=== PATIENT | female | born 1955 | race Caucasian/White ===

== ENCOUNTER 2016-12-26 14:12 | Inpatient (IN) | payer BC ==
[~2016-12-26] VITALS: Ht 160 cm; Wt 57.9 kg
[2017-01-05 04:48] VITALS: O2SAT 98
[2017-01-05] MEDS ORDERED: UMEC1AER INH (11:53)
[2017-01-05] MEDS ORDERED: PRAV40TA2 PO (11:54)
[2017-01-05] MEDS ORDERED: LEVO50TA4 PO (11:55)
[2017-01-05] MEDS ORDERED: VENTAER INH (11:56)
[2017-01-05] MEDS ORDERED: DEXT 5%-NACL 0.9% 1000 ML INJ 1,000 ML IV SCH (12:00)
[2017-01-05] MEDS ORDERED: METRONIDAZOLE 500 MG/100 ML ISONTONIC SOLN IV SCH (12:00)
[2017-01-05] MEDS ORDERED: ceFAZolin 2 GM PREMIX 50 ML IV SCH (12:00)
[2017-01-05] MEDS ORDERED: SODIUM CHLORID 0.9% 500 ML IV SCH (12:00)
[2017-01-05] MEDS ORDERED: INSULIN HUMAN REGULAR 1,000 UNITS/10 ML VIAL SQ PRN (12:00)
[2017-01-05] MEDS ORDERED: METOPROLOL TARTRATE 25 MG TAB PO PRN (12:00)
[2017-01-05] MEDS ORDERED: LACTATED RINGER'S 1000 ML IV SCH (12:00)
[2017-01-05 12:09] VITALS: BP 139/82; PULSE 96; RESP 18; TEMP 97.9; O2SAT 98
[2017-01-05] MEDS ORDERED: PROPOFOL 200 MG/20 ML AMP IV ONE (12:46)
[2017-01-05] MEDS ORDERED: ONDANSETRON HCL 4 MG/2 ML VIAL IV PUSH ONE (12:46)
[2017-01-05] MEDS ORDERED: LACTATED RINGER'S 1000 ML INJ 1,000 ML IV ONE (12:46)
[2017-01-05] MEDS ORDERED: NORMOSOL R INJ 2,000 ML IV ONE (12:46)
[2017-01-05] MEDS ORDERED: ePHEDrine/NS 50 MG/5 ML SYR IV ONE (12:46)
--- NOTE | 2017-01-05 14:19 | PD.HP.UP ---
H&P Update Note The Pre-Admit History and Physical Examination regarding the above named patient was reviewed (including, but not limited to, vital signs, heart, lungs, co-morbid conditions), and upon re-examination it is noted that: the patient's condition has not significantly changed since the last examination. Sada Olmedo MD Jan 05, 2017 14:19
[2017-01-05] MEDS ORDERED: APREPITANT 40 MG CAP ONE (14:58)
[2017-01-05] MEDS ORDERED: FAMOTIDINE 20 MG/2 ML VIAL ONE (14:58)
[2017-01-05] MEDS ORDERED: ACETAMINOPHEN 1000 MG/100 ML VIAL IV ONE (15:02)
[2017-01-05] MEDS ORDERED: fentaNYL CITRATE 250 MCG/5 ML AMP ONE (15:02)
[2017-01-05] MEDS ORDERED: HYDROmorphone HCL PF 2 MG/ML VIAL ONE (15:02)
[2017-01-05] MEDS ORDERED: MIDAZOLAM HCL 2 MG/2 ML VIAL ONE (15:48)
--- NOTE | 2017-01-05 16:44 | PD.OP ---
Operative Report Date of Surgery: Jan 05, 2017 Preoperative Diagnosis: Colovesical fistula Postoperative Diagnosis: Same Procedure: Cystoscopy and bilateral ureteral catheter insertion Anesthesia: Gen. endotracheal tube anesthesia Surgeon: Nacho Sharp Tank Car Cleaner(s): None Operation and Findings: 61-year-old female with history of colovaginal fistula elected to undergo repair by Dr. Olmedo. Request for made for bilateral ureteral catheter insertion. Risk and benefits were discussed preoperatively and she was willing to proceed. Patient was brought to operating room identified by myself as Marija Yang. She was placed in the dorsal lithotomy position, prepped and draped in usual sterile fashion, received preprocedure antibiotics and general endotracheal tube anesthesia. 22 [place] cystoscope was inserted in the bladder frederick cystoscopy did not reveal any abnormalities. The left ureteral orifice was identified and a 5 [place]ian open catheter was inserted into the left ureteral orifice without difficulty. This was repeated on the right side without difficulty. Bartlett was inserted and the catheters were attached to a Bartlett and he tolerated the procedure well. Nacho Sharp DO Jan 05, 2017 16:44
[2017-01-05] MEDS ORDERED: SUGAMMADEX SODIUM 200 MG/2 ML VIAL IV PUSH ONE ×2 (18:29)
[2017-01-05 19:19] LABS: HEMATOCRIT 34.5 % (35.0-46.0); REVIEW FLAG FINAL
[2017-01-05 19:24] LABS: BLOOD GAS BASE EXCESS -1.9 mmol/L (-2-2); BLOOD GAS CARBOXYHEMOGLOBIN 1.7 % (0-4); BLOOD GAS HCO3 22 mmol/L (22-26); BLOOD GAS METHEMOGLOBIN 1.3 % (0-2); BLOOD GAS O2 HGB SATURATION 97 % (90-100); BLOOD GAS PCO2 37 mmHg (38-42); BLOOD GAS PO2 309 mmHg (61-120); BLOOD GAS TOTAL HGB 11.2 G/DL (12.0-16.0); CRITICAL VALUE NO; DRAW SITE ART LINE; FIO2 50 %; OXYGEN DEVICE VENTILATOR; STAT YES; TEMP CORR TO 98.6; VENT SETTINGS PER ANESTHESIA
[2017-01-05] MEDS ORDERED: MORPHINE SULFATE 30 MG/30 ML PCA IV SCH (20:15)
[2017-01-05] MEDS ORDERED: ACETAMINOPHEN 325 MG TAB PO PRN (20:15)
[2017-01-05] MEDS ORDERED: ALBUTEROL SULFATE 90 MCG/ACT HFA 8 GM INHALER INH PRN (20:15)
[2017-01-05] MEDS ORDERED: NALOXONE HCL 0.4 MG/ML AMP IV PRN (20:15)
[2017-01-05] MEDS ORDERED: ONDANSETRON HCL 4 MG/2 ML VIAL IV PRN (20:15)
[2017-01-05] MEDS ORDERED: Post-op Orders (for Pharmacy) MISC XX ONE (20:15)
[2017-01-05] MEDS ORDERED: KETOROLAC TROMETHAMINE 30 MG/ML (IVP) VIAL IVP PRN (20:15)
[2017-01-05] MEDS ORDERED: diphenhydrAMINE HCL 50 MG/ML VIAL IV PRN (20:15)
[2017-01-05] MEDS ORDERED: BENZOCAINE 6 MG/MENTHOL 10 MG LOZENGE SUCK-ON PRN (20:15)
[2017-01-05] MEDS ORDERED: SODIUM CHLORIDE 0.9% FLUSH 5 ML FLUSH IVF PRN (20:15)
[2017-01-05] MEDS ORDERED: POTASSIUM CHLOR 40 MEQ PREMIX 100 ML IV PRN (20:15)
[2017-01-05] MEDS ORDERED: ENALAPRILAT 2.5 MG/2 ML VIAL IV PRN (20:15)
[2017-01-05] MEDS ORDERED: POTASSIUM CHLOR 20 MEQ PREMIX 100 ML IV PRN (20:15)
[2017-01-05] MEDS ORDERED: ENALAPRILAT 1.25 MG/ML VIAL IV PRN (20:15)
[2017-01-05] MEDS ORDERED: ACETAMINOPHEN/HYDROcodone 325 MG/5 MG TAB PO PRN ×2 (20:15)
[2017-01-05] MEDS: D5-NS + KCL 20 MEQ INJ 1,000 ML IV SCH (20:30)
[2017-01-05 20:39] LABS: AUTOMATED NEUTROPHIL # 14.5 TH/MM3 (1.8-7.7); BASOPHIL # 0.1 TH/MM3 (0-0.2); BASOPHIL % 0.5 % (0.0-2.0); EOSINOPHIL % 0.2 % (0.0-4.0); HEMATOCRIT 36.8 % (35.0-46.0); HEMO FLAGS DIFF FINAL; LYMPH % 12.1 % (9.0-44.0); LYMPHOCYTE # 2.1 TH/MM3 (1.0-4.8); MEAN CELL VOLUME 86.6 FL (80.0-100.0); MEAN CORPUSCULAR HEMOGLOBIN 29.2 PG (27.0-34.0); MEAN CORPUSCULAR HGB CONC 33.8 % (32.0-36.0); MONO % 2.8 % (0.0-8.0); NEUT % 84.4 % (16.0-70.0); PLATELET COUNT 243 TH/MM3 (150-450); RED BLOOD COUNT 4.25 MIL/MM3 (4.00-5.30); RED CELL DISTRIBUTION WIDTH 14.4 % (11.6-17.2); WHITE BLOOD COUNT 17.1 TH/MM3 (4.0-11.0)
[2017-01-05] MEDS ORDERED: DO NOT ADM ANY ANTICOAGULANT DRUGS XX PRN (20:45)
[2017-01-05 20:57] LABS: POTASSIUM 3.3 MEQ/L (3.5-5.1)
[2017-01-05 21:13] LABS: CALCIUM-PROTEIN CORRECTED 7.7 MG/DL (8.5-10.1)
[2017-01-05 22:00] VITALS: BP 119/55; PULSE 84; RESP 16; TEMP 97.6; O2SAT 96
[2017-01-05] MEDS: PCA - TOTAL MG MORPHINE DELIVERED PER SHIFT SCH (22:00)
[2017-01-05 23:00] VITALS: BP 111/59; PULSE 84; PULSE 85; RESP 16; O2SAT 98
[2017-01-06] VITALS (28 sets, daily range): BP systolic 99–122; BP diastolic 54–64; PULSE 76–94; RESP 16–18; TEMP 97.7–98.6; O2SAT 95–97
[2017-01-06] MEDS: metroNIDAZOLE 500 MG INJ 100 ML IV SCH ×3 (01:00→14:26)
[2017-01-06] MEDS: SODIUM CHLORIDE 0.9% FLUSH 5 ML FLUSH IVF SCH ×3 (01:01→21:28)
[2017-01-06] MEDS: D5-NS + KCL 20 MEQ INJ 1,000 ML IV SCH ×2 (03:54→17:00)
[2017-01-06 05:22] LABS: BASOPHIL % 0.1 % (0.0-2.0); HEMATOCRIT 35.6 % (35.0-46.0); HEMO FLAGS DIFF FINAL; LYMPH % 6.7 % (9.0-44.0); MEAN CELL VOLUME 87.4 FL (80.0-100.0); MEAN CORPUSCULAR HEMOGLOBIN 29.3 PG (27.0-34.0); MEAN CORPUSCULAR HGB CONC 33.6 % (32.0-36.0); MONO % 7.4 % (0.0-8.0); NEUT % 85.8 % (16.0-70.0); PLATELET COUNT 224 TH/MM3 (150-450); RED BLOOD COUNT 4.08 MIL/MM3 (4.00-5.30); RED CELL DISTRIBUTION WIDTH 14.8 % (11.6-17.2); WHITE BLOOD COUNT 15.2 TH/MM3 (4.0-11.0)
[2017-01-06] MEDS: PCA - TOTAL MG MORPHINE DELIVERED PER SHIFT SCH ×3 (05:38→21:24)
[2017-01-06 05:48] LABS: BICARBONATE 25.4 MEQ/L (21.0-32.0); POTASSIUM 3.9 MEQ/L (3.5-5.1)
[2017-01-06] MEDS: LEVOTHYROXINE SODIUM 50 MCG TAB PO SCH (06:15)
[2017-01-06 06:40] LABS: CALCIUM-PROTEIN CORRECTED 7.4 MG/DL (8.5-10.1)
--- NOTE | 2017-01-06 07:54 | HHI.PR ---
Subjective Remarks POD#1 s/p Robotic KIESHA/LAR/SBR Reports pain, some nausea Objective Vital Signs Date Time Temp Pulse Resp B/P Pulse Ox O2 Delivery O2 Flow Rate FiO2 01/06/17 07:34 96 21 01/06/17 06:00 89 01/06/17 05:38 16 01/06/17 05:00 87 01/06/17 04:00 90 01/06/17 03:40 91 16 113/58 96 01/06/17 03:00 89 01/06/17 02:00 89 01/06/17 01:00 86 01/06/17 00:00 89 01/05/17 23:00 85 01/05/17 23:00 84 16 111/59 98 01/05/17 22:00 97.6 84 16 119/55 96 01/05/17 22:00 84 01/05/17 22:00 16 01/05/17 22:00 16 01/05/17 21:40 97.5 83 16 100 Nasal Cannula 4 01/05/17 21:30 82 14 117/66 100 Nasal Cannula 4 01/05/17 21:15 87 14 136/70 95 Nasal Cannula 4 01/05/17 21:12 14 01/05/17 21:00 86 14 116/66 94 Nasal Cannula 4 01/05/17 20:45 93 16 139/70 99 Nasal Cannula 4 01/05/17 20:30 97 16 128/68 99 Nasal Cannula 4 01/05/17 20:22 97.7 99 18 131/71 99 Nasal Cannula 4 01/05/17 12:09 97.9 96 18 139/82 98 I/O 01/05/17 01/05/17 01/05/17 01/06/17 01/06/17 01/06/17 07:00 15:00 23:00 07:00 15:00 23:00 Intake Total 3100 ml 1250 ml Output Total 400 ml 800 ml Balance 2700 ml 450 ml Intake Oral 50 ml IV Total 1200 ml Other 3100 ml Output Urine Total 150 ml 800 ml Estimated Blood Loss 100 ml Other 150 ml # Bowel Movements 0 Result Diagram: 01/06/17 0445 01/06/17 0445 Objective Remarks Abdomen soft, nondistended, tender Dressings c/d/i urine still sanguinous Assessment and Plan Assessment and Plan Hold on fulls until nausea resolves Mobilize Stent d/c'd Sada Olmedo MD Jan 06, 2017 07:54
[2017-01-06] MEDS: PANTOPRAZOLE SODIUM 40 MG VIAL IVP SCH (08:10)
[2017-01-06] MEDS: UMECLIDINIUM 62.5 MCG/VILANTEROL 25 MCG INHALER INH SCH (10:21)
[2017-01-06] MEDS: HEPARIN SODIUM - SQ 10,000 UNITS/ML VIAL SQ SCH (18:46)
--- NOTE | 2017-01-06 20:23 | MP ---
cc: EMILY OLMEDO M.D. SOUMYA OLMEDO M.D. DATE OF SURGERY: 01/05/2017 PREOPERATIVE DIAGNOSIS: 1. Diverticulitis 2. Colovaginal fistula. POSTOPERATIVE DIAGNOSIS: 1. Diverticulitis. 2. Colovaginal fistula. 3. Adhesions. OPERATIVE PROCEDURE PERFORMED: 1. Laparoscopic / robotic extensive lysis of adhesions. 2. Robotic low anterior resection 3. Robotic small bowel resection. SURGEON: Emily Olmedo M.D. ESTIMATED BLOOD LOSS: 100 cc. INDICATIONS FOR THE PROCEDURE: The patient is a 61-year-old female who was recently noted to have a colovaginal fistula. OPERATIVE FINDINGS: The liver was normal. The proximal colon was normal, although there were some scattered diverticula but the bowel was soft and pliable. The mid and distal sigmoid was inflamed, phlegmonatous and stuck down to the left pelvic side wall. The proximal-mid small bowel was stuck down as well. . DESCRIPTION OF THE PROCEDURE IN DETAIL: The patient was brought to the operating room and placed in the supine position. After induction of general anesthesia, the patient was placed in Russell stirrups. All bony prominences were carefully padded. The skin of the anterior abdominal wall, as well as the perineal area, was then prepped and draped in the usual sterile fashion. Dr. Sharp then came in and performed cystoscopy with placement of bilateral ureteral catheters, please see his operative note for details. A site was then chosen for the camera, being located 2 cm above and to the right of the umbilicus. The 10/12 port was placed at this location using the laparoscope. CO2 insufflation was then undertaken. A brief abdominal survey was performed, and the patient was noted to have the phlegmon in the sigmoid with the small bowel adherent, but there was nothing that would preclude the robotic approach. The #1 port was then placed just inside the right anterior superior iliac spine, and this was a 10/12 port. The #5 assist port was placed just under the right costal margin, equal distance between the #1 port and the camera port. The patient was hydroplaned with head down and slightly to the right. There were some areas where the omentum was adherent down into the pelvis, and these were dissected free and the omentum was eventually brought up-and-over the transverse colon and retracted. The small bowel was then gently dissected free from the area of the phlegmon, with plans to evaluate that more fully later in the case. The other two ports were then placed as follows: Both #8 da Beryl ports. The #3 port was placed in left anterior axillary line, on a line with the umbilicus, and the #2 port was placed in the left midclavicular line, just above the umbilical line. At this point, the small bowel was brought up and out of the pelvis and to the right and we had relatively good view of the base of the mesentery. The robot was then docked. The sigmoid colon was retracted down and to the left. The peritoneum was scored and dissection continued in this plane until the left ureter was clearly identified and swept away from the specimen. A window was made superior to the vessels and the echelon Endo stapler, white load, was brought onto the field. This was placed across the vessels, closed, held for 30 seconds, fired, and removed. Dissection then continued in the posterior plane, down to level of the mid rectum and up and around the right and left side. The adhesions of the sigmoid colon were then slowly and painstakingly dissected free from the left pelvic sidewall, peeling it off of the vagina. Eventually we had all the adhesions taken down and we were able to pull the colon up and straighten it out. A sponge stick was then placed in the rectum. After evaluation of the colon there seemed to be a slight kink just at the level of the peritoneal reflection. The dissection continued down to this level and a site was then chosen for division of the rectum. The mesentery at this level was divided using the harmonic scalpel, and the echelon endostapler was placed across the bowel. The stapler was fired and removed. At this point, the 29 EEA stapler was advanced up to the rectal stump and it still just had kind of a funny kink at the end, so I did elect to dissect back an additional 3 to 4 cm. The mesentery was dissected back and a reload of the [place] stapler was placed across the bowel at this level. Eventually the small remnant was retrieved and discarded. At this point the stapler was again advanced to the rectal stump and came up nicely and lay without any abnormal orientation. The descending colon was then retracted to the right and the lateral peritoneal attachment and posterior peritoneal attachment to the descending colon were dissected free up to the level of the splenic flexure, but not around it. At this point, I felt that it came nicely down to the pelvis without too much trouble and the robot was undocked. A 7 to 10 cm transverse incision was made in the suprapubic area and, using electrocautery, dissection was carried down to the fascia of the anterior abdominal wall which was split the length of the skin incision. The medial fibers of the rectus abdominis muscle were then divided, and the posterior fascia/peritoneum was also split the length the skin incision. The wound retractor was then placed and the proximal stapled end of bowel was grasped and pulled up and out through the pelvis. A site was then chosen for proximal division of bowel, where the bowel was healthy and soft. It was not possible to find an area with no diverticula. The mesentery at this level was serially divided and ligated using 0 Vicryl ties, and a pursestring stapling device was placed across the bowel. The distal bowel was occluded with a [place] clamp and the bowel was amputated. The specimen was taken to a back table where it was later opened and severe diverticulitis was later confirmed but no other abnormality. The anvil from the 29 EEA was then placed into the cut end of the bowel and the previously placed pursestring suture was then secured. It was necessary to suture in one small diverticula to make for a better anastomosis. At this point, the small bowel was run and the area of inflammation where it was stuck down to the phlegmon was evaluated. I did feel that it was somewhat damaged and I elected to resect it. The bowel was cleared of its mesentery proximally and distally and a JOSEE 55 stapler was placed across the bowel at both locations. The intervening mesentery was serially divided and ligated using 0 Vicryl ties, and the specimen was sent for pathology. The antimesenteric corners of the staple line were then removed. One limb of the gastrointestinal stapler was placed down each limb of the bowel. This was closed along the antimesenteric border, fired, and removed, thus creating an enteroenterostomy. The resulting enterotomy was closed transversely using a TX 60 stapling device. A simple stay suture was placed at the distal end of the anastomosis, using 3-0 Vicryl. The small bowel was then prolapsed back into the peritoneal cavity and the stapler was again advanced up to the rectal stump. The spike was then advanced just anterior to the staple line. The anvil was into the spike, being careful that the bowel was not twisted. The stapler was then closed, held for 30 seconds, fired and removed, thus creating an enteroenterostomy. The anastomosis appeared pink and healthy circumferentially and both anastomotic rings appeared to be complete. A small amount of warm normal saline was placed into the pelvis. The proximal bowel was occluded with digital pressure while air was insufflated into the rectum until gentle tension was noted across the anastomosis, with no sign of any leakage noted. The air was desufflated to the extent possible and the saline was suctioned out of the pelvis. The anastomosis lay in a nice orientation without undue tension. Due to some oozing in the pelvis and along the area of the vaginal fistula, Sara was dusted through the pelvic cavity. The omentum was brought down to lie across the anterior surface of the bowel. The posterior fascia of the anterior abdominal wall was closed in a running fashion using #1 PDS and the anterior fascia of the anterior abdominal wall was closed in a running fashion using #1 PDS. CO2 insufflation was resumed and the 10/12 trocar sites in the right lower quadrant and at the umbilicus was then closed using the crossbow closure device and #0 Vicryl suture. These sutures were placed but not closed until the air was desufflated to the extent possible These sutures were then secured and all trocars were removed. The skin incisions were then copiously irrigated with normal saline. The incision at the suprapubic site was closed in a running subcuticular fashion using 3-0 Vicryl and the port sites were closed in an interrupted subcuticular fashion using 3-0 Vicryl. Steri-Strips and sterile dressing was applied. The right ureteral catheter was removed. All sponge, needle and sponge counts were correct and the patient was returned to the post-anesthesia care unit in stable condition. MD REBA Peralta/CARINE /8:06 PM /7:55 PM VENU
[2017-01-07] VITALS (17 sets, daily range): BP systolic 116–154; BP diastolic 56–83; PULSE 83–100; RESP 16; TEMP 97.8–98.5; O2SAT 94–96
[2017-01-07] MEDS: D5-NS + KCL 20 MEQ INJ 1,000 ML IV SCH ×2 (02:31→15:07)
[2017-01-07] MEDS: PCA - TOTAL MG MORPHINE DELIVERED PER SHIFT SCH ×3 (06:00→21:19)
[2017-01-07] MEDS: LEVOTHYROXINE SODIUM 50 MCG TAB PO SCH (06:20)
[2017-01-07] MEDS: HEPARIN SODIUM - SQ 10,000 UNITS/ML VIAL SQ SCH ×2 (06:21→17:08)
[2017-01-07 08:13] LABS: AUTOMATED NEUTROPHIL # 11.4 TH/MM3 (1.8-7.7); BASOPHIL # 0.1 TH/MM3 (0-0.2); BASOPHIL % 0.4 % (0.0-2.0); EOSINOPHIL # 0.1 TH/MM3 (0-0.4); EOSINOPHIL % 0.4 % (0.0-4.0); HEMATOCRIT 36.4 % (35.0-46.0); HEMO FLAGS DIFF FINAL; LYMPH % 17.3 % (9.0-44.0); LYMPHOCYTE # 2.7 TH/MM3 (1.0-4.8); MEAN CELL VOLUME 88.7 FL (80.0-100.0); MEAN CORPUSCULAR HEMOGLOBIN 28.8 PG (27.0-34.0); MEAN CORPUSCULAR HGB CONC 32.5 % (32.0-36.0); MONO % 9.4 % (0.0-8.0); NEUT % 72.5 % (16.0-70.0); PLATELET COUNT 218 TH/MM3 (150-450); RED CELL DISTRIBUTION WIDTH 15.3 % (11.6-17.2); WHITE BLOOD COUNT 15.7 TH/MM3 (4.0-11.0)
[2017-01-07 08:29] LABS: BICARBONATE 25.8 MEQ/L (21.0-32.0); POTASSIUM 4.2 MEQ/L (3.5-5.1)
[2017-01-07] MEDS: PANTOPRAZOLE SODIUM 40 MG VIAL IVP SCH (08:42)
[2017-01-07] MEDS: SODIUM CHLORIDE 0.9% FLUSH 5 ML FLUSH IVF SCH ×2 (08:42→21:00)
[2017-01-07] MEDS: UMECLIDINIUM 62.5 MCG/VILANTEROL 25 MCG INHALER INH SCH (08:42)
--- NOTE | 2017-01-07 09:06 | HHI.PR ---
Subjective Remarks POD#2 s/p Robotic KIESHA/LAR/SBR Feels much better Pain minimal Objective Vital Signs Date Time Temp Pulse Resp B/P Pulse Ox O2 Delivery O2 Flow Rate FiO2 01/07/17 06:00 100 01/07/17 06:00 16 01/07/17 05:00 92 01/07/17 04:00 92 01/07/17 03:40 93 16 125/60 94 01/07/17 03:00 95 01/07/17 02:00 93 01/07/17 01:00 90 01/07/17 00:00 90 01/07/17 00:00 92 16 116/56 95 01/06/17 23:00 94 01/06/17 22:00 87 01/06/17 21:24 16 01/06/17 21:00 91 01/06/17 20:30 97 Room Air 01/06/17 20:30 98.0 80 16 122/58 97 01/06/17 20:00 91 01/06/17 19:00 82 01/06/17 18:00 85 01/06/17 17:00 81 01/06/17 16:00 81 01/06/17 15:30 82 01/06/17 15:30 98.6 82 18 99/64 96 01/06/17 15:00 83 01/06/17 14:00 87 01/06/17 14:00 18 01/06/17 13:00 86 01/06/17 12:00 87 01/06/17 11:30 85 01/06/17 11:30 98.0 85 16 102/54 96 01/06/17 11:00 85 01/06/17 10:00 79 I/O 01/06/17 01/06/17 01/06/17 01/07/17 01/07/17 01/07/17 07:00 15:00 23:00 07:00 15:00 23:00 Intake Total 1250 ml 2050 ml 1600 ml Output Total 800 ml 850 ml 1775 ml Balance 450 ml 1200 ml -175 ml Intake Oral 50 ml 800 ml 400 ml IV Total 1200 ml 1250 ml 1200 ml Output Urine Total 800 ml 850 ml 1775 ml # Bowel Movements 0 0 0 Result Diagram: 01/07/1773001/07/17730 Objective Remarks Abdomen soft, mild distension, tender wound clean urine still sanguinous Assessment and Plan Assessment and Plan Lasix Remove charles this afternoon Advance diet with dinner Transfer Sada Olmedo MD Jan 07, 2017 09:06
[2017-01-07] MEDS: FUROSEMIDE 20 MG/2 ML VIAL IV PUSH SCH (17:07)
[2017-01-08 03:19] VITALS: BP 154/75; PULSE 96; RESP 16; O2SAT 95
[2017-01-08 05:45] LABS: AUTOMATED NEUTROPHIL # 11.5 TH/MM3 (1.8-7.7); BASOPHIL # 0.1 TH/MM3 (0-0.2); BASOPHIL % 0.5 % (0.0-2.0); EOSINOPHIL % 0.2 % (0.0-4.0); HEMATOCRIT 37.3 % (35.0-46.0); HEMO FLAGS DIFF FINAL; LYMPH % 13.1 % (9.0-44.0); MEAN CELL VOLUME 86.8 FL (80.0-100.0); MEAN CORPUSCULAR HEMOGLOBIN 29.3 PG (27.0-34.0); MEAN CORPUSCULAR HGB CONC 33.7 % (32.0-36.0); MONO % 9.9 % (0.0-8.0); NEUT % 76.3 % (16.0-70.0); PLATELET COUNT 219 TH/MM3 (150-450); RED CELL DISTRIBUTION WIDTH 14.8 % (11.6-17.2); WHITE BLOOD COUNT 15.1 TH/MM3 (4.0-11.0)
[2017-01-08] MEDS: PCA - TOTAL MG MORPHINE DELIVERED PER SHIFT SCH ×2 (06:00→15:35)
[2017-01-08 06:12] LABS: BICARBONATE 25.9 MEQ/L (21.0-32.0)
[2017-01-08] MEDS: LEVOTHYROXINE SODIUM 50 MCG TAB PO SCH (06:18)
[2017-01-08] MEDS: HEPARIN SODIUM - SQ 10,000 UNITS/ML VIAL SQ SCH ×2 (06:19→20:21)
[2017-01-08 08:00] VITALS: BP 153/74; PULSE 99; RESP 16; TEMP 98.1; O2SAT 93
[2017-01-08] MEDS: PANTOPRAZOLE SODIUM 40 MG VIAL IVP SCH (09:01)
[2017-01-08] MEDS: SODIUM CHLORIDE 0.9% FLUSH 5 ML FLUSH IVF SCH ×2 (09:02→20:21)
[2017-01-08] MEDS: UMECLIDINIUM 62.5 MCG/VILANTEROL 25 MCG INHALER INH SCH (09:02)
[2017-01-08] MEDS: FUROSEMIDE 20 MG/2 ML VIAL IV PUSH SCH ×2 (09:02→18:43)
[2017-01-08 12:15] VITALS: BP 131/63; PULSE 101; RESP 16; TEMP 98.2; O2SAT 99
[2017-01-08] MEDS: D5-NS + KCL 20 MEQ INJ 1,000 ML IV SCH (12:34)
--- NOTE | 2017-01-08 14:50 | HHI.PR ---
Subjective Remarks POD#3 s/p Robotic KIESHA/LAR/SBR Comfortable, no BM/Flatus Objective Vital Signs Date Time Temp Pulse Resp B/P Pulse Ox O2 Delivery O2 Flow Rate FiO2 01/08/17 12:15 98.2 101 16 131/63 99 01/08/17 08:00 98.1 99 16 153/74 93 01/08/17 08:00 93 Room Air 01/08/17 06:00 16 01/08/17 03:19 96 16 154/75 95 01/07/17 23:18 92 16 154/75 94 01/07/17 22:53 94 Room Air 01/07/17 21:19 16 01/07/17 19:15 98.5 95 16 136/70 94 01/07/17 17:00 16 01/07/17 15:30 97.9 94 16 137/83 96 I/O 01/07/17 01/07/17 01/07/17 01/08/17 01/08/17 01/08/17 07:00 15:00 23:00 07:00 15:00 23:00 Intake Total 1600 ml 1502 ml 1120 ml Output Total 1775 ml 2300 ml 2800 ml Balance -175 ml -798 ml -1680 ml Intake Oral 400 ml 780 ml 400 ml IV Total 1200 ml 722 ml 720 ml Output Urine Total 1775 ml 2300 ml 2800 ml # Bowel Movements 0 0 0 Result Diagram: 01/08/17 0515 01/08/17 0515 Objective Remarks Abdomen soft, mild distension, tender wound clean Assessment and Plan Assessment and Plan Encouraged Mobilization Home in am Sada Olmedo MD Jan 08, 2017 14:50
[2017-01-08 15:00] VITALS: BP 128/62; PULSE 100; RESP 16; TEMP 98.1; O2SAT 98
[2017-01-08 16:43] VITALS: BP 134/76; PULSE 103; RESP 18; TEMP 98.5; O2SAT 97
[2017-01-08 19:00] VITALS: BP 154/88; PULSE 108; TEMP 98.2; O2SAT 97
[2017-01-09 00:41] VITALS: BP 109/60; PULSE 100; TEMP 98.5; O2SAT 95
[2017-01-09 03:00] VITALS: BP 117/73; PULSE 90; TEMP 97.8; O2SAT 92
[2017-01-09] MEDS: LEVOTHYROXINE SODIUM 50 MCG TAB PO SCH (05:04)
[2017-01-09 07:00] VITALS: BP 122/73; PULSE 88; RESP 20; TEMP 98.4; O2SAT 94
--- NOTE | 2017-01-09 09:43 | HHI.PR ---
Subjective Remarks POD#4 s/p Robotic KIESHA/LAR/SBR + Flatus! Objective Vital Signs Date Time Temp Pulse Resp B/P Pulse Ox O2 Delivery O2 Flow Rate FiO2 01/09/17 07:00 98.4 88 20 122/73 94 01/09/17 07:00 94 Room Air 01/09/17 03:00 97.8 90 117/73 92 01/09/17 00:41 98.5 100 109/60 95 01/08/17 19:00 98.2 108 154/88 97 01/08/17 19:00 Room Air 01/08/17 16:43 97 Room Air 01/08/17 16:43 98.5 103 18 134/76 97 01/08/17 15:35 16 01/08/17 15:00 98.1 100 16 128/62 98 01/08/17 12:15 98.2 101 16 131/63 99 I/O 01/08/17 01/08/17 01/08/17 01/09/17 01/09/17 01/09/17 07:00 15:00 23:00 07:00 15:00 23:00 Intake Total 1120 ml 240 ml 240 ml Output Total 2800 ml 300 ml 1100 ml Balance -1680 ml -60 ml -860 ml Intake Oral 400 ml 240 ml 240 ml IV Total 720 ml Output Urine Total 2800 ml 300 ml 1100 ml # Bowel Movements 0 Result Diagram: 01/08/17 0515 01/08/17 0515 Objective Remarks Abdomen soft, nondistended, tender wound clean Assessment and Plan Assessment and Plan Doing well Home today Followup 3 weeks Sada Olmedo MD Jan 09, 2017 09:42
[2017-01-09] MEDS ORDERED: HYDR-3516 PO (09:44)
[2017-01-09] MEDS: PANTOPRAZOLE SODIUM 40 MG VIAL IVP SCH (10:17)
[2017-01-09] MEDS: UMECLIDINIUM 62.5 MCG/VILANTEROL 25 MCG INHALER INH SCH (10:17)
[2017-01-09] MEDS: FUROSEMIDE 20 MG/2 ML VIAL IV PUSH SCH (10:17)
[2017-01-09] MEDS: HEPARIN SODIUM - SQ 10,000 UNITS/ML VIAL SQ SCH (10:17)
[2017-01-09] MEDS: SODIUM CHLORIDE 0.9% FLUSH 5 ML FLUSH IVF SCH (10:18)
--- NOTE | 2017-04-15 21:27 | MD ---
cc: EMILY MERCEDES M.D. ADMISSION DATE: 01/05/2017 DISCHARGE DATE: 01/09/2017 ADMISSION DIAGNOSES 1. Diverticulitis 2. Colovaginal fistula. DISCHARGE DIAGNOSES 1. Diverticulitis. 2. Colovaginal fistula. PROCEDURES 1. Cystoscopy with placement of bilateral ureteral catheters. 2. Laparoscopic/robotic extensive lysis of adhesions. 3. Robotic low anterior resection. 4. Robotic small bowel resection. HOSPITAL COURSE The patient is 58-year-old female who was recently noted to have a colovaginal fistula. She was admitted to hospital on January 05, 2017 after an outpatient bowel prep where she underwent the above named procedures. Intraoperative findings included mid to distal sigmoid inflamed phlegmon which was stuck down to the left pelvic sidewall with the proximal to mid small bowel involved in the inflammation as well. Postoperatively the patient did well with rapid return of bowel and bladder function. She was discharged to home on January 09, 2017 with instructions to follow up with myself in the office. Final pathology was consistent with diverticulitis with a colovaginal fistula. MD REBA Peralta/KK /1:27 PM /9:24 PM MTDD
== END 2017-01-09 12:47 | disposition home or self-care (01) | DRG 330 ==
LOC: HSDI 01-05 10:57 → HCPC 01-05 21:52 → HCIS 01-08 16:20
PROVIDERS: ADMIT Colon & Rectal Surgery; ATTEND Colon & Rectal Surgery
PROC: 0DB80ZZ Excision of Small Intestine, Open Approach (ICD-10-PCS; 2017-01-05)
PROC: 0DNN4ZZ Release Sigmoid Colon, Percutaneous Endoscopic Approach (ICD-10-PCS; 2017-01-05)
PROC: 0DBP0ZZ Excision of Rectum, Open Approach (ICD-10-PCS; 2017-01-05)
PROC: 8E0W4CZ Robotic Assisted Procedure of Trunk Region, Percutaneous Endoscopic Approach (ICD-10-PCS; 2017-01-05)
PROC: 0TJB8ZZ Inspection of Bladder, Via Natural or Artificial Opening Endoscopic (ICD-10-PCS; 2017-01-05)
PROC: 0T787DZ Dilation of Bilateral Ureters with Intraluminal Device, Via Natural or Artificial Opening (ICD-10-PCS; 2017-01-05)
PROC: 0DBN0ZZ Excision of Sigmoid Colon, Open Approach (ICD-10-PCS; principal; 2017-01-05 15:54)
PROC: 0DNT4ZZ (ICD-10-PCS; 2017-01-05 15:54)
DX: K57.32 Diverticulitis of large intestine without perforation or abscess without bleeding (principal); N82.2 Fistula of vagina to small intestine; K63.0 Abscess of intestine; K66.0 Peritoneal adhesions (postprocedural) (postinfection); J44.9 Chronic obstructive pulmonary disease, unspecified; F17.210 Nicotine dependence, cigarettes, uncomplicated
CPT/HCPCS: 80048; 82805; 84155; 85014; 85018; 85025; 86850; 86900; 86901; 88305; 88307; 88309; 94150; C9113; J0131; J0690; J1170; J1644; J1940; J2250; J2270; J2405; J3010; J3480; J7120; J8501